=== PATIENT | female | born 1950 | race Caucasian/White ===

== ENCOUNTER 2017-07-06 10:59 | Emergency (ER) | payer MEDICARE, MEDICAID ==
[~2017-07-06] VITALS: Ht 157.4 cm; Wt 53.5 kg
[~2017-07-06 10:59] MED LIST: ANTI-DIARRHEAL PO; CYCLOBENZAPRINE10 MG PO; FLUTICASON0.05 MG/AC NAS; GENTAMICIN T; KEPPRA500 MG PO; LIPITOR20 MG PO; Meclizine25 MG PO; PEPCID20 MG PO; PRILOSEC20 M1 PO
[2017-07-06] MEDS ORDERED: OMNICEF300 MG PO (11:36)
== END 2017-07-06 12:06 | disposition home or self-care (01) ==
LOC: ED 10:59
DX: H66.91 Otitis media, unspecified, right ear (principal); H92.03 Otalgia, bilateral; R03.0 Elevated blood-pressure reading, without diagnosis of hypertension; F17.200 Nicotine dependence, unspecified, uncomplicated; Z88.8 Allergy status to other drugs, medicaments and biological substances

== ENCOUNTER 2017-09-15 15:08 | Emergency (ER) | payer MEDICARE, MEDICAID ==
[~2017-09-15] VITALS: Ht 157.4 cm; Wt 53.5 kg
[~2017-09-15 15:08] MED LIST changes: +OMNICEF300 MG PO
[2017-09-15] MEDS ORDERED: ROBITUSSIN DM 105 ML PO (15:37)
[2017-09-15] MEDS ORDERED: FLONASE ALLERG9.9 ML NAS (15:37)
[2017-09-15] MEDS ORDERED: CLARITIN10 MG PO (15:37)
[2017-09-15] MEDS ORDERED: PREDNISONE10 MG PO (15:37)
[2017-09-15] MEDS ORDERED: DUONEB 3 MG/3 ML3 M1 INH (17:15)
== END 2017-09-15 17:07 | disposition home or self-care (01) ==
LOC: ED 15:08
DX: J20.9 Acute bronchitis, unspecified (principal); R03.0 Elevated blood-pressure reading, without diagnosis of hypertension; F17.200 Nicotine dependence, unspecified, uncomplicated; Z79.899 Other long term (current) drug therapy; Z88.8 Allergy status to other drugs, medicaments and biological substances; Z88.6 Allergy status to analgesic agent

== ENCOUNTER 2017-10-08 10:20 | Emergency (ER) | payer MEDICARE ==
[~2017-10-08] VITALS: Ht 157.4 cm; Wt 54.4 kg
[~2017-10-08 10:20] MED LIST changes: +CLARITIN10 MG PO; +DUONEB 3 MG/3 ML3 M1 INH; +FLONASE ALLERG9.9 ML NAS; +PREDNISONE10 MG PO; +ROBITUSSIN DM 105 ML PO
== END 2017-10-08 11:58 | disposition home or self-care (01) ==
LOC: ED 10:20
DX: M79.604 Pain in right leg (principal); J44.9 Chronic obstructive pulmonary disease, unspecified; F17.200 Nicotine dependence, unspecified, uncomplicated; F12.10 Cannabis abuse, uncomplicated; Z79.899 Other long term (current) drug therapy; Z88.6 Allergy status to analgesic agent; Z88.8 Allergy status to other drugs, medicaments and biological substances